=== PATIENT | female | born 1980 | race Caucasian/White ===

== ENCOUNTER 2016-11-23 10:39 | Observation (INO) | payer OTHER ==
[~2016-11-23] VITALS: Ht 162.6 cm; Wt 85.7 kg
[2016-11-23 11:13] VITALS: BP 106/60
[2016-11-23] MEDS ORDERED: PREN1TAB80 PO (11:15)
== END 2016-11-23 11:30 | disposition home or self-care (01) ==
LOC: EDBD → 4S 10:45
PROVIDERS: ADMIT Obstetrics & Gynecology; ATTEND Obstetrics & Gynecology
DX: O24.313 Unspecified pre-existing diabetes mellitus in pregnancy, third trimester (principal); Z3A.33 33 weeks gestation of pregnancy

== ENCOUNTER 2016-11-28 09:20 | Observation (INO) | payer OTHER ==
[~2016-11-28] VITALS: Ht 162.6 cm; Wt 88.0 kg
[~2016-11-28 09:20] MED LIST: PREN1TAB80 PO
[2016-11-28] MEDS ORDERED: FERR-89 PO (09:49)
[2016-11-28 09:50] VITALS: BP 111/64
[2016-11-28 10:01] LABS: GLUCOSE,POINT OF CARE 71 MG/DL (70-110)
== END 2016-11-28 10:10 | disposition home or self-care (01) ==
LOC: 4S 09:20
PROVIDERS: ADMIT Obstetrics & Gynecology; ATTEND Obstetrics & Gynecology
DX: O24.419 Gestational diabetes mellitus in pregnancy, unspecified control (principal); Z3A.34 34 weeks gestation of pregnancy
CPT/HCPCS: 59025; 82962; G0378

== ENCOUNTER 2016-12-01 10:05 | Observation (INO) | payer OTHER ==
[~2016-12-01] VITALS: Ht 170.2 cm; Wt 86.6 kg
[~2016-12-01 10:05] MED LIST changes: +FERR-89 PO
[2016-12-01 10:41] LABS: GLUCOSE,POINT OF CARE 85 MG/DL (70-110)
[2016-12-01 10:51] VITALS: BP 120/76
== END 2016-12-01 10:45 | disposition home or self-care (01) ==
LOC: 4S 10:05
PROVIDERS: ADMIT Obstetrics & Gynecology; ATTEND Obstetrics & Gynecology
DX: O24.410 Gestational diabetes mellitus in pregnancy, diet controlled (principal); Z3A.35 35 weeks gestation of pregnancy
CPT/HCPCS: 59025; 82962; G0378

== ENCOUNTER 2016-12-05 13:02 | Observation (INO) | payer OTHER ==
[2016-12-05 13:21] VITALS: BP 109/69
== END 2016-12-05 14:25 | disposition home or self-care (01) ==
LOC: 4S 13:02
PROVIDERS: ADMIT Obstetrics & Gynecology; ATTEND Obstetrics & Gynecology
DX: O24.419 Gestational diabetes mellitus in pregnancy, unspecified control (principal); Z3A.35 35 weeks gestation of pregnancy
CPT/HCPCS: 59025; G0378

== ENCOUNTER 2016-12-11 12:35 | Observation (INO) | payer OTHER ==
[~2016-12-11] VITALS: Ht 170.2 cm; Wt 87.5 kg
[2016-12-11 12:57] VITALS: BP 112/71
[2016-12-11 13:01] LABS: GLUCOSE,POINT OF CARE 68 MG/DL (70-110)
== END 2016-12-11 13:20 | disposition home or self-care (01) ==
LOC: 4S 12:35
PROVIDERS: ADMIT Obstetrics & Gynecology; ATTEND Obstetrics & Gynecology
DX: O24.410 Gestational diabetes mellitus in pregnancy, diet controlled (principal); Z3A.36 36 weeks gestation of pregnancy
CPT/HCPCS: 59025; 82962; G0378

== ENCOUNTER 2016-12-12 21:14 | Observation (INO) | payer OTHER ==
[~2016-12-12] VITALS: Ht 162.6 cm; Wt 85.7 kg
[2016-12-12 22:01] LABS: GLUCOSE COMMENT 1 Doctor Notified; GLUCOSE,POINT OF CARE 104 MG/DL (70-110)
== END 2016-12-12 23:10 | disposition home or self-care (01) ==
LOC: 4S 21:14
PROVIDERS: ADMIT Obstetrics & Gynecology; ATTEND Obstetrics & Gynecology
DX: O62.9 Abnormality of forces of labor, unspecified (principal); O24.419 Gestational diabetes mellitus in pregnancy, unspecified control; O99.013 Anemia complicating pregnancy, third trimester; Z3A.36 36 weeks gestation of pregnancy
CPT/HCPCS: 59025; 82962; G0378

== ENCOUNTER 2016-12-14 11:15 | Observation (INO) | payer OTHER ==
[~2016-12-14] VITALS: Ht 171 cm; Wt 85.7 kg
[2016-12-14 11:35] VITALS: BP 113/70
[2016-12-14 11:36] LABS: GLUCOSE,POINT OF CARE 74 MG/DL (70-110)
== END 2016-12-14 12:00 | disposition home or self-care (01) ==
LOC: 4S 11:15
PROVIDERS: ADMIT Obstetrics & Gynecology; ATTEND Obstetrics & Gynecology
DX: O24.419 Gestational diabetes mellitus in pregnancy, unspecified control (principal); Z3A.37 37 weeks gestation of pregnancy
CPT/HCPCS: 59025; 82962; G0378

== ENCOUNTER 2016-12-19 12:40 | Observation (INO) | payer OTHER ==
[~2016-12-19] VITALS: Ht 167.6 cm; Wt 87.1 kg
[2016-12-19 14:37] LABS: GLUCOSE COMMENT 1 Juice/Food/D50 Given; GLUCOSE,POINT OF CARE 66 MG/DL (70-110)
[2016-12-19 14:37] LABS: GLUCOSE COMMENT 1 Post Meal; GLUCOSE,POINT OF CARE 94 MG/DL (70-110)
[2016-12-19 14:38] VITALS: BP 126/71
== END 2016-12-19 14:30 | disposition home or self-care (01) ==
LOC: 4S 12:40
PROVIDERS: ADMIT Obstetrics & Gynecology; ATTEND Obstetrics & Gynecology
DX: O24.419 Gestational diabetes mellitus in pregnancy, unspecified control (principal); Z3A.37 37 weeks gestation of pregnancy
CPT/HCPCS: 59025; 82962; G0378

== ENCOUNTER 2016-12-23 22:33 | Inpatient (IN) | payer OTHER ==
[~2016-12-23] VITALS: Ht 162.6 cm; Wt 88.5 kg
[2016-12-23] MEDS ORDERED: OXYTOCIN 30 UNITS/LACT RINGERS 500 ML IV ONE (22:44)
[2016-12-23] MEDS ORDERED: RINGERS SOLUTION,LACTATED 1,000 ML IV PRN (22:44)
[2016-12-23] MEDS ORDERED: RINGERS SOLUTION,LACTATED 1,000 ML IV SCH (22:44)
[2016-12-23] MEDS ORDERED: METOCLOPRAMIDE HCL 5 MG/ML 2 ML VIAL IVP PRN (22:45)
[2016-12-23] MEDS ORDERED: CITRIC ACID/SODIUM CITRATE 30 ML SOLUTION UDCUP PO PRN (22:45)
[2016-12-23 23:04] LABS: BASOPHILS % (AUTO) 0.1 % (0.0-2.0); EOSINOPHILS # (AUTO) 0.04 K/uL (0.00-0.70); EOSINOPHILS % (AUTO) 0.61 % (1.0-6.0); HEMATOCRIT 35.2 % (36-46); HEMOGLOBIN 11.8 g/dL (12.0-16.0); LYMPHOCYTES # (AUTO) 1.6 K/uL (1.0-4.8); LYMPHOCYTES % (AUTO) 25.9 % (22.0-44.0); MEAN CORPUSCULAR HEMOGLOBIN 28.3 pg (26.0-34.0); MEAN CORPUSCULAR HGB CONC 33.4 G/dL (31.0-37.0); MEAN CORPUSCULAR VOLUME 85 fL (80-100); MONOCYTES # (AUTO) 0.4 K/uL (0.1-1.0); MONOCYTES % (AUTO) 6.3 % (2.0-9.0); NEUTROPHILS # (AUTO) 4.1 K/uL (1.8-7.7); NEUTROPHILS % (AUTO) 67.1 % (40.0-70.0); PLATELET COUNT (AUTO) 176 K/uL (150-450); RED BLOOD CELL COUNT(AUTO) 4.16 MIL/uL (4.00-5.20); RED CELL DISTRIBUTION WIDTH 16.1 % (11.5-14.5); WHITE BLOOD COUNT (AUTO) 6.1 K/uL (4.5-11.0)
[2016-12-23] MEDS ORDERED: BUPIVACAINE HCL/PF 0.25% 30 ML VIAL ONE (23:17)
[2016-12-23] MEDS ORDERED: FentaNYL/BUPIV 0.125%/NS/PF 200 ML ED PRN (23:56)
[2016-12-24] MEDS ORDERED: ONDANSETRON HCL 4 MG/2 ML VIAL IVP PRN
[2016-12-24] MEDS ORDERED: DiphenhydrAMINE HCL 50 MG/ML VIAL IVP PRN
[2016-12-24 00:22] VITALS: BP 122/67
[2016-12-24] MEDS ORDERED: INFLUENZA VIRUS VACCINE QVS 2016-17 (3YR+)/PF 60 MCG/0.5 ML SYRINGE IM ONE (00:30)
[2016-12-24] MEDS ORDERED: OXYTOCIN 20 UNITS in RINGERS SOLUTION,LACTATED 1,000 ML IV ONE (01:52)
[2016-12-24 01:56] LABS: GLUCOSE COMMENT 1 Repeated; GLUCOSE,POINT OF CARE 106 MG/DL (70-110)
[2016-12-24] MEDS ORDERED: BENZOCAINE 20%/MENTHOL 56 GM SPRAY CANISTER TP PRN (03:15)
[2016-12-24] MEDS ORDERED: LANOLIN 7 GM OINTMENT TP PRN (03:15)
[2016-12-24] MEDS ORDERED: GLYCERIN/WITCH HAZEL LEAF 40 PADS JAR TP PRN (03:15)
[2016-12-24] MEDS ORDERED: OXYGEN THERAPY IH SCH (08:00)
[2016-12-24] MEDS: IBUPROFEN 600 MG TABLET PO PRN (17:39)
[2016-12-24] MEDS: MAGNESIUM HYDROXIDE SUSPENSION 30 ML UDCUP PO PRN (20:15)
[2016-12-24] MEDS: SENNA/DOCUSATE SODIUM 187-50 MG TABLET PO PRN (20:16)
[2016-12-24] MEDS: ACETAMINOPHEN/CODEINE 300-30 MG TABLET PO PRN (20:17)
[2016-12-25] MEDS: IBUPROFEN 600 MG TABLET PO PRN ×2 (01:05→14:25)
[2016-12-25] MEDS: MAGNESIUM HYDROXIDE SUSPENSION 30 ML UDCUP PO PRN ×2 (08:46→21:36)
[2016-12-25] MEDS: SENNA/DOCUSATE SODIUM 187-50 MG TABLET PO PRN ×2 (08:46→21:36)
[2016-12-25] MEDS ORDERED: FentaNYL/BUPIV 0.125%/NS/PF 200 ML ED ONE (15:02)
[2016-12-26] MEDS ORDERED: CeFAZolin 2 GM/DEXTROSE 50 ML IV ONE (09:34)
[2016-12-26] MEDS ORDERED: FentaNYL CITRATE-PF 100 MCG/2 ML VIAL ONE (09:35)
[2016-12-26] MEDS ORDERED: DEXAMETHASONE SOD PHOS 4 MG/ML VIAL IVP PRN (10:00)
[2016-12-26] MEDS ORDERED: PROMETHAZINE HCL 12.5 MG in SODIUM CHLORIDE 0.9% 50 ML IV PRN (10:00)
[2016-12-26] MEDS ORDERED: DiphenhydrAMINE HCL 50 MG/ML VIAL IVP PRN (10:00)
[2016-12-26] MEDS ORDERED: ONDANSETRON HCL 4 MG/2 ML VIAL IVP PRN (10:00)
[2016-12-26] MEDS ORDERED: FentaNYL CITRATE-PF 100 MCG/2 ML VIAL IVP PRN ×2 (10:00)
[2016-12-26] MEDS ORDERED: MIDAZOLAM HCL 2 MG/2 ML VIAL ONE (10:07)
[2016-12-26] MEDS ORDERED: BUPIVACAINE HCL/PF 0.5% 30 ML VIAL ONE (10:07)
[2016-12-26] MEDS ORDERED: BUPIVACAINE HCL/PF 0.25% 10 ML VIAL ONE (10:09)
[2016-12-26] MEDS ORDERED: BUPIVACAINE HCL/PF 0.25% 30 ML VIAL ONE (10:09)
[2016-12-26] MEDS ORDERED: MORPHINE SULFATE 10 MG/ML SYRINGE ONE (11:58)
[2016-12-26] MEDS: MEPERIDINE-PF 25 MG/ML SYRINGE IVP PRN ×2 (12:41→13:43)
[2016-12-26] MEDS: FentaNYL CITRATE-PF 100 MCG/2 ML VIAL IVP PRN ×2 (13:43→15:06)
[2016-12-26] MEDS ORDERED: PERCT PO (19:11)
[2016-12-26] MEDS ORDERED: IBUP-2070 PO (19:11)
[2016-12-26] MEDS ORDERED: DSS100 PO (19:12)
[2016-12-26] MEDS: IBUPROFEN 600 MG TABLET PO PRN (19:40)
[2016-12-26] MEDS: ACETAMINOPHEN/CODEINE 300-30 MG TABLET PO PRN (19:40)
[2016-12-26] MEDS ORDERED: KETOROLAC TROMETHAMINE 60 MG/2 ML VIAL IM ONE (19:59)
[2016-12-26] MEDS ORDERED: OXYGEN THERAPY IH SCH ×2 (20:00)
== END 2016-12-26 20:00 | disposition home or self-care (01) | DRG 541 ==
LOC: OBSVTOIN 22:33 → INTOOBSV 22:33 → 4S 22:33 → PREOBSVTOIN 01-26 23:09
PROVIDERS: ADMIT Obstetrics & Gynecology; ATTEND Obstetrics & Gynecology
PROC: 10E0XZZ Delivery of Products of Conception, External Approach (ICD-10-PCS; principal; 2016-12-24)
PROC: 0KQM0ZZ Repair Perineum Muscle, Open Approach (ICD-10-PCS; 2016-12-24)
PROC: 3E0S3CZ (ICD-10-PCS; 2016-12-24)
PROC: 00HU33Z Insertion of Infusion Device into Spinal Canal, Percutaneous Approach (ICD-10-PCS; 2016-12-24)
PROC: 0UB70ZZ Excision of Bilateral Fallopian Tubes, Open Approach (ICD-10-PCS; 2016-12-26)
DX: O77.0 Labor and delivery complicated by meconium in amniotic fluid (principal); O70.1 Second degree perineal laceration during delivery; Z37.0 Single live birth; Z3A.38 38 weeks gestation of pregnancy; Z30.2 Encounter for sterilization
CPT/HCPCS: 82962; 86850; 86900; 86901; 88302; 90471; J0690; J1885; J2175; J2250; J2270; J2405; J2590; J3010; J3490; J7120